=== PATIENT | male | born 1985 | race Caucasian/White ===

== ENCOUNTER 2020-08-05 09:45 | Outpatient (REF) | payer SELFPAY ==
[2020-08-05 16:22] LABS: ALT 70 U/L (16-63); AST 33 U/L (15-37); Albumin 4.4 g/dL (3.4-5.0); Alkaline Phosphatase 81 U/L (46-116); Anion Gap 10.5 mmol/L (3-11); BUN 17 mg/dL (7-18); Bilirubin, Total 0.6 mg/dL (0.2-1.0); CO2 25.5 mmol/L (21.0-32.0); Calcium 9.7 mg/dL (8.5-10.1); Calculated LDL 104 mg/dL (<100); Chloride 106 mmol/L (98-107); Cholesterol 185 mg/dL (<200); Glucose 110 mg/dL (74-106); HDL Cholesterol 65 mg/dL (40-60); Potassium 4.4 mmol/L (3.5-5.1); Sodium 142 mmol/L (136-145); Total Protein 7.6 g/dL (6.4-8.2); Triglyceride 81 mg/dL (<150)
[2020-08-06 09:40] LABS: HBs Antibody, Quant 71.5 mIU/mL (See Note); Hepatitis B Surface Ab Positive (See Note)
[2020-08-06 10:11] LABS: Varicella IgG Antibody Positive (See Note)
[2020-08-06 10:16] LABS: Measles IgG Antibody Negative (See Note); Mumps Antibody IgG Positive (See Note); Rubella IgG Ab (UVM) Negative (See Note)
== END 2020-08-05 09:46 | disposition home or self-care (01) ==
LOC: NCHCN 09:45
PROVIDERS: PCP Physician Assistant Medical; Visit Provider Physician Assistant
DX: Z00.00 Encounter for general adult medical examination without abnormal findings (principal); Z13.220 Encounter for screening for lipoid disorders; Z13.228 Encounter for screening for other metabolic disorders; Z82.49 Family history of ischemic heart disease and other diseases of the circulatory system; Z83.3 Family history of diabetes mellitus; Z11.59 Encounter for screening for other viral diseases; Z01.84 Encounter for antibody response examination
CPT/HCPCS: 80053; 80061; 86706; 86787; 86735; 86762; 86765

== ENCOUNTER 2022-09-20 21:28 | Outpatient (REF) | payer OTHER, SELFPAY ==
[2022-09-20 20:09] LABS: Abs Immature Grans 0.02 10^3/uL (0.0-0.06); Absolute Basophil Count 0.03 10^3/uL (0.0-0.2); Absolute Eosinophil Count 0.05 10^3/uL (0.0-0.7); Absolute Lymphocyte Count 1.26 10^3/uL (1.2-3.4); Absolute Monocyte Count 0.68 10^3/uL (0.1-0.8); Absolute Neutrophil Count 5.17 10^3/uL (1.2-6.7); Basophils % 0.4; Eosinophils % 0.7; HCT 43.2 % (40.0-50.0); HGB 15.1 g/dL (13.5-17.5); Immature Grans % 0.3; Lymphocytes % 17.5; MCH 30.9 pg (27.0-33.0); MCV 88 fL (80-95); MPV 11.1 fL (8.0-11.0); Monocytes % 9.4; Neutrophils % 71.7; Platelet Count 301 10^3/uL (130-400); RBC 4.89 10^6/uL (4.36-5.78); RDW-SD 42.2 fL; WBC 7.21 10^3/uL (4.4-10.8)
[2022-09-20 20:22] LABS: ALT 55 U/L (16-63); AST 32 U/L (15-37); Albumin 4.1 g/dL (3.4-5.0); Alkaline Phosphatase 78 U/L (46-116); Anion Gap 10.6 mmol/L (3-11); BUN 15 mg/dL (7-18); Bilirubin, Total 0.6 mg/dL (0.2-1.0); CO2 26.4 mmol/L (21.0-32.0); CREATININE 0.9 mg/dL (0.70-1.30); Calcium 9.3 mg/dL (8.5-10.1); Chloride 104 mmol/L (98-107); Estimated GFR 112.81 (mL/min/1.73m2); Glucose 103 mg/dL (74-106); Potassium 3.6 mmol/L (3.5-5.1); Sodium 141 mmol/L (136-145); Total Protein 7.7 g/dL (6.4-8.2)
[2022-09-20 20:25] LABS: Hemoglobin A1C 5.6 % (<5.7)
== END 2022-09-20 21:29 | disposition home or self-care (01) ==
LOC: NCHCN 21:28
PROVIDERS: PCP Physician Assistant Medical; Visit Provider Physician Assistant
DX: R10.10 Upper abdominal pain, unspecified (principal); E66.9 Obesity, unspecified; Z13.1 Encounter for screening for diabetes mellitus; Z83.3 Family history of diabetes mellitus
CPT/HCPCS: 80053; 83036; 85025